=== PATIENT | female | born 1960 ===

== ENCOUNTER 2018-01-29 19:10 | Emergency (ER) | payer OTHER ==
[2018-01-29 19:31] VITALS: O2SAT 98
--- NOTE | 2018-01-29 20:02 | C.PDOC ---
History Of Present Illness 57 year female presents to the ER with back pain and anterior chest wall pain after she fell while at the store today. Denies weakness or numbness. Chief Complaint (Nursing): Chest Pain History Per: Patient History/Exam Limitations: no limitations Onset/Duration Of Symptoms: Hrs Current Symptoms Are (Timing): Still Present Quality Of Discomfort: Unable To Describe Previous Symptoms: None Associated Symptoms: None Recent travel outside of the [place]: No Past Medical History Reviewed: Historical Data, Nursing Documentation, Vital Signs Vital Signs: Last Vital Signs Temp 98.9 F 01/29/18 19:20 Pulse 84 01/29/18 19:20 Resp 16 01/29/18 19:20 BP 146/93 H 01/29/18 19:20 Pulse Ox 98 01/29/18 20:12 - Medical History PMH: Anxiety, Asthma, Depression - [employer] Procedures GROUP PSYCHOTHERAPY (07/10/16) Family History: States: Unknown Family Hx - Social History Hx Tobacco Use: No Hx Alcohol Use: No Hx Substance Use: No - Immunization History Hx Tetanus Toxoid Vaccination: No Hx Influenza Vaccination: Yes Hx Pneumococcal Vaccination: No Review Of Systems Constitutional: Negative for: Fever, Chills Musculoskeletal: Positive for: Back Pain, Other (Chest wall pain) Neurological: Negative for: Weakness, Numbness Physical Exam - Physical Exam Appears: Non-toxic, Other (Mild distress due to the pain) Skin: Normal Color, Warm, Dry Head: Atraumatic, Normacephalic Eye(s): bilateral: Normal Inspection Oral Mucosa: Moist Chest: Symmetrical, Tenderness (Lower substernal) Cardiovascular: Rhythm Regular Respiratory: Normal Breath Sounds, No Rales, No Rhonchi, No Wheezing Gastrointestinal/Abdominal: Soft, No Tenderness Back: Paraspinal Tenderness (Mid/lower thoracic area), Other (No limitation of movement) Extremity: Normal ROM (x4) Neurological/Psych: Oriented x3, Normal Speech, Normal Motor, Normal Sensation ED Course And Treatment - Laboratory Results Result Diagrams: 01/29/18 20:29 01/29/18 20:29 ECG: Interpreted By Me, Viewed By Me ECG Rhythm: Sinus Rhythm ECG Interpretation: No Acute Changes, Abnormal (poor R-wave V1 to V2) O2 Sat by Pulse Oximetry: 98 (Room air) Pulse Ox Interpretation: Normal Progress Note: CT of thoracic spine, blood work, and EKG ordered. Disposition Counseled Patient/Family Regarding: Diagnosis - Disposition Referrals: [facility] [Outside] Disposition: HOME/ ROUTINE Disposition Time: 22:06 Condition: STABLE Instructions: Costochondritis, Upper Back Pain (DC), Low Back Pain (DC) Forms: [facility] ([employer]), Gen Discharge Inst Uzbek Print Language: THAI - POA Present On Arrival: None - Clinical Impression Clinical Impression: Chest wall pain, Back pain, Arthritis - Scribe Statement The provider has reviewed the documentation as recorded by the Scriblizette Frakn All medical record entries made by the Jeremyiblizette were at my direction and personally dictated by me. I have reviewed the chart and agree that the record accurately reflects my personal performance of the history, physical exam, medical decision making, and the department course for this patient. I have also personally directed, reviewed, and agree with the discharge instructions and disposition.
[2018-01-29 20:36] LABS: BASO # 0.1 K/uL (0.0-0.2); BASO % 0.5 % (0.0-2.0); EOS % 0.1 % (0.0-4.0); HEMOGLOBIN 12.8 g/dL (11.0-16.0); LYMPH # 1.1 K/uL (1.0-4.3); LYMPH % 10.3 % (20.0-40.0); MEAN CELL VOLUME 82.3 fL (81.0-99.0); MEAN CORPUSCULAR HEMOGLOBIN 28.3 pg (27.0-31.0); MEAN CORPUSCULAR HGB CONC 34.4 g/dL (33.0-37.0); MONO # 0.5 K/uL (0.0-0.8); MONO % 4.3 % (0.0-10.0); NEUT # 9.2 K/uL (1.8-7.0); NEUT % 84.8 % (50.0-75.0); RBC 4.52 Mil/uL (3.80-5.20); RED CELL DISTRIBUTION WIDTH 14.4 % (11.5-14.5); WHITE BLOOD COUNT 10.8 K/uL (4.8-10.8)
[2018-01-29 20:51] LABS: ALB/GLOB RATIO 1.3 (1.0-2.1); ALBUMIN 4.4 g/dL (3.5-5.0); ALT/SGPT 33 U/L (9-52); AST/SGOT 27 U/L (14-36); BLOOD UREA NITROGEN 11 mg/dL (7-17); CALCIUM 9.3 mg/dl (8.6-10.4); GFR AFRICAN-AMERICAN > 60; GFR NON-AFRICAN AMERICAN > 60
--- NOTE | 2018-01-29 21:56 | CT ---
EXAM: CT Thoracic Spine Without Intravenous Contrast EXAM DATE/TIME: 01/29/2018 8:04 PM CLINICAL HISTORY: 57 years old, female; Injury or trauma; Fall; Initial encounter; Abrasion TECHNIQUE: Axial computed tomography images of the thoracic spine without intravenous contrast. All CT scans at this facility use one or more dose reduction techniques, viz.: automated exposure control; ma/kV adjustment per patient size (including targeted exams where dose is matched to indication; i.e. head); or iterative reconstruction technique. Coronal and sagittal reformatted images were created and reviewed. COMPARISON: There are no prior studies for comparison. FINDINGS: Vertebrae: Thoracic vertebral bodies are normal in height and alignment. There are no fractures. There is degenerative changes noted multiple levels with small plates. There is mild disc space narrowing and osteophyte formation.Facet joints align anatomically. The visualized posterior ribs are intact Discs/spinal canal/neural foramina: See above. Soft tissues: Paraspinous musculature is unremarkable. Lungs: There are atelectatic changes in the dependent lung zones. Mediastinum: Posterior mediastinum is unremarkable. IMPRESSION: Degenerative change, no fracture
--- NOTE | 2018-01-29 22:02 | CT ---
EXAM: CT Lumbar Spine Without Intravenous Contrast EXAM DATE/TIME: 01/29/2018 8:06 PM CLINICAL HISTORY: 57 years old, female; Injury or trauma; Fall; Initial encounter; Abrasion TECHNIQUE: Axial computed tomography images of the lumbar spine without intravenous contrast. All CT scans at this facility use one or more dose reduction techniques, viz.: automated exposure control; ma/kV adjustment per patient size (including targeted exams where dose is matched to indication; i.e. head); or iterative reconstruction technique. Coronal and sagittal reformatted images were created and reviewed. COMPARISON: CR - LS SPINE AP/LAT 2015-08-16 16:02 FINDINGS: Vertebrae: Lumbar vertebral bodies are normal in height and alignment. There are no fractures. There small degenerative osteophytes L1/L2 and L3/L4. Disc spaces are maintained.Facet joints align anatomically. There is mild early facet disease L5/S1.Spinous processes align in the expected fashion. Sacroiliac joints are patent. Mineralization is normal. Discs/spinal canal/neural foramina: See above. Soft tissues: Psoas and paraspinous muscles are symmetric. Vasculature: Vascular structures are unremarkable. Lymph nodes: There is no pathologic adenopathy. IMPRESSION: No fracture
[2018-01-29 22:59] VITALS: BP 158/99; PULSE 88; RESP 20; TEMP 98.1
--- NOTE | 2018-01-30 08:29 | RAD ---
Chest x-ray single frontal view History: Chest pain. Comparison: 07/10/2016 Findings: Biapical pleural thickening with upper lobe granulomatous changes. Bibasilar breast and nipple shadows. Tortuous aorta. Heart size within normal limits. Degenerative changes in the spine. Impression: Prominent patchy consolidative opacifications seen within the right mid to lower lung zone. Diffuse increased interstitial lung markings which may represent edema and or infiltrate. Right hilar prominence. Cardiomegaly.
--- NOTE | 2018-01-30 14:25 | CARD ---
APPROVED REPORT EKG Measurement Heart [id number] ID [id number] <Conclusion> Normal sinus rhythm Septal infarct, age undetermined Abnormal ECG
== END 2018-01-29 21:55 | disposition home or self-care (01) ==
LOC: C.ER 19:10
DX: R07.89 Other chest pain (principal); M54.9 Dorsalgia, unspecified; M19.90 Unspecified osteoarthritis, unspecified site
CPT/HCPCS: 36415; 71046; 72128; 72131; 80053; 84484; 85025; 85378; 93005; 96372; 99285; J1885